=== PATIENT | female | born 1980 | race Caucasian/White ===

== ENCOUNTER 2020-09-09 08:51 | Emergency (ER) | payer OTHER ==
[~2020-09-09 08:51] MED LIST: CLEOCIN300 MG PO; COLACE100 M1 PO; FLAGYL500 MG PO; KEFLEX500 MG PO; LEVAQUIN500 MG PO; METRONIDAZOLE500 MG PO; NORCO 5-325 TA1 EACH PO; ZOFRAN8 MG PO
[2020-09-09] MEDS ORDERED: PREDNISONE 20MG20 MG PO (11:48)
[2020-09-09] MEDS ORDERED: ATARAX25 MG PO (11:48)
[2021-02-08] MEDS ORDERED: ATORVASTATIN CA10 MG PO (10:27)
[2021-02-08] MEDS ORDERED: AMLODIPINE-BEN1 EAC4 PO (10:28)
[2021-02-16] MEDS ORDERED: ADVIL200 M1 PO (08:20)
== END 2020-09-09 11:58 | disposition home or self-care (01) ==
LOC: FER 08:51
DX: L50.0 Allergic urticaria (principal); I10 Essential (primary) hypertension; E10.9 Type 1 diabetes mellitus without complications; Z88.0 Allergy status to penicillin; Z79.899 Other long term (current) drug therapy
CPT/HCPCS: J1200; J2930

== ENCOUNTER 2020-10-27 23:17 | Emergency (ER) | payer OTHER ==
[~2020-10-27 23:17] MED LIST changes: +ATARAX25 MG PO; +PREDNISONE 20MG20 MG PO
[2020-10-28 00:27] LABS: BILIRUBIN NEGATIVE (NEGATIVE); BLOOD 3+ Ery/uL (NEGATIVE); CLARITY CLOUDY (CLEAR); COLOR YELLOW (YELLOW); GLUCOSE (U) NORMAL (NORMAL); LEUKOCYTES 2+ Leu/uL (NEGATIVE); NITRITE POSITIVE (NEGATIVE); PROTEIN 2+ mg/dL (NEGATIVE); SPECIFIC GRAVITY 1.025 (1.001-1.030); UROBILINOGEN 0.2 mg/dL (0.2-1.0); pH 6.5 (5.0-9.0)
[2020-10-28 00:43] LABS: BACTERIA 2+
[2020-10-28 01:36] LABS: BASOPHIL 0.5 % (0-2); EOSINOPHIL 0.8 % (0-5); HCT 41.8 % (37.0-47.0); HGB 13.4 g/dl (12.5-16.0); LYMPHOCYTE 15.3 % (15-48); MCHC 32.1 g/dL (32.0-36.0); MCV 87.3 fL (78.0-100.0); MPV 10.6 fL (6.0-9.5); NRBC 0; PLT 279 K/uL (150-400); RBC 4.79 M/uL (4.20-5.40); RDW 14.6 % (11.5-14.0); WBC 13.4 K/uL (4.0-10.5)
[2020-10-28 01:53] LABS: ALBUMIN 3.5 g/dL (3.4-5.0); BILIRUBIN - TOTAL 0.4 mg/dL (0.2-1.0); BUN/CREAT RATIO (CALC) 16.9 RATIO; CREATININE 0.65 mg/dL (0.51-0.95); GLOBULIN (CALCULATION) 3.8 g/dL; POTASSIUM 3.4 mmol/L (3.5-5.1); TOTAL PROTEIN 7.3 g/dL (6.4-8.2)
[2020-10-28] MEDS ORDERED: ONDANSETRON ODT4 MG SL (02:39)
[2020-10-28] MEDS ORDERED: CIPRO500 MG PO (02:39)
[2020-10-28] MEDS ORDERED: PYRIDIUM200 MG PO (02:39)
[2020-10-28] MEDS ORDERED: NORCO 5-325 TA1 EACH PO (02:39)
[2021-02-08] MEDS ORDERED: ATORVASTATIN CA10 MG PO (10:27)
[2021-02-08] MEDS ORDERED: AMLODIPINE-BEN1 EAC4 PO (10:28)
[2021-02-16] MEDS ORDERED: ADVIL200 M1 PO (08:20)
== END 2020-10-28 02:51 | disposition home or self-care (01) ==
LOC: FER 23:17
PROVIDERS: Emergency Medicine Emergency Medical Services
DX: N30.00 Acute cystitis without hematuria (principal); R16.0 Hepatomegaly, not elsewhere classified; I10 Essential (primary) hypertension; F17.210 Nicotine dependence, cigarettes, uncomplicated; Z88.0 Allergy status to penicillin; Z87.19 Personal history of other diseases of the digestive system
CPT/HCPCS: 36415; 80053; 81001; 83605; 83690; 84145; 85025; J0696; J1885; J2405; J7030

== ENCOUNTER 2021-01-05 07:38 | Emergency (ER) | payer OTHER ==
[~2021-01-05 07:38] MED LIST changes: +CIPRO500 MG PO; +ONDANSETRON ODT4 MG SL; +PYRIDIUM200 MG PO
[2021-01-05 09:11] LABS: ALBUMIN 3.8 g/dL (3.4-5.0); BILIRUBIN - TOTAL 0.6 mg/dL (0.2-1.0); CREATININE 0.63 mg/dL (0.51-0.95); GLOBULIN (CALCULATION) 3.8 g/dL; TOTAL PROTEIN 7.6 g/dL (6.4-8.2)
[2021-01-05 09:17] LABS: BASOPHIL 0.8 % (0-2); HCT 43.9 % (37.0-47.0); HGB 14.3 g/dl (12.5-16.0); LYMPHOCYTE 26.5 % (15-48); MCH 28.6 pg (25.0-31.0); MCHC 32.6 g/dL (32.0-36.0); MCV 87.8 fL (78.0-100.0); MONOCYTE 6.2 % (0-12); NEUTROPHIL 64.2 % (41-80); NRBC 0; PLT 288 K/uL (150-400); RDW 14.6 % (11.5-14.0); WBC 8.9 K/uL (4.0-10.5)
[2021-01-05 09:18] LABS: BILIRUBIN NEGATIVE (NEGATIVE); BLOOD 1+ Ery/uL (NEGATIVE); CLARITY HAZY (CLEAR); COLOR YELLOW (YELLOW); GLUCOSE (U) NORMAL (NORMAL); LEUKOCYTES NEGATIVE Leu/uL (NEGATIVE); NITRITE NEGATIVE (NEGATIVE); PROTEIN NEGATIVE (NEGATIVE); SPECIFIC GRAVITY >=1.030 (1.001-1.030); UROBILINOGEN 0.2 mg/dL (0.2-1.0)
[2021-01-05 09:20] LABS: HCG (URINE) SCREEN NEGATIVE (NEGATIVE)
[2021-01-05 09:29] LABS: BACTERIA 1+
[2021-01-05] MEDS ORDERED: ONDANSETRON ODT4 MG PO (12:34)
[2021-01-05] MEDS ORDERED: CIPRO500 MG PO (12:34)
[2021-01-05] MEDS ORDERED: BENTYL10 MG PO (12:34)
[2021-01-05] MEDS ORDERED: METRONIDAZOLE500 MG PO (12:34)
[2021-02-08] MEDS ORDERED: ATORVASTATIN CA10 MG PO (10:27)
[2021-02-08] MEDS ORDERED: AMLODIPINE-BEN1 EAC4 PO (10:28)
[2021-02-16] MEDS ORDERED: ADVIL200 M1 PO (08:20)
== END 2021-01-05 13:18 | disposition home or self-care (01) ==
LOC: FER 07:38
PROVIDERS: Emergency Medicine
DX: K57.32 Diverticulitis of large intestine without perforation or abscess without bleeding (principal); I10 Essential (primary) hypertension; F17.210 Nicotine dependence, cigarettes, uncomplicated; Z88.0 Allergy status to penicillin
CPT/HCPCS: 36415; 80053; 81001; 84703; 85025; J1170; J1956; J2405; J7030; Q9967

== ENCOUNTER → 2021-02-16 | Day surgery (SDC) | payer OTHER ==
[~2021-02-16] VITALS: Ht 174 cm; Wt 122.5 kg
[~2021-02-16] MED LIST changes: +ADVIL200 M1 PO; +AMLODIPINE-BEN1 EAC4 PO; +ATORVASTATIN CA10 MG PO; +BENTYL10 MG PO; +ONDANSETRON ODT4 MG PO
[2021-02-16 08:32] LABS: HCG (URINE) SCREEN NEGATIVE (NEGATIVE)
[2021-02-16 08:57] LABS: HCT 43.3 % (37.0-47.0); HGB 14.2 g/dl (12.5-16.0); MCH 28.6 pg (25.0-31.0); MCHC 32.8 g/dL (32.0-36.0); MCV 87.3 fL (78.0-100.0); MPV 10.8 fL (6.0-9.5); RBC 4.96 M/uL (4.20-5.40); RDW 14.2 % (11.5-14.0); WBC 8.5 K/uL (4.0-10.5)
[2021-02-16 09:04] LABS: BILIRUBIN - TOTAL 0.7 mg/dL (0.2-1.0); CREATININE 0.6 mg/dL (0.51-0.95); POTASSIUM 3.8 mmol/L (3.5-5.1)
== END | disposition home or self-care (01) ==
LOC: FAS 08:06
PROVIDERS: Anesthesiology; Surgery
DX: K57.31 Diverticulosis of large intestine without perforation or abscess with bleeding (principal); K25.9 Gastric ulcer, unspecified as acute or chronic, without hemorrhage or perforation; F41.9 Anxiety disorder, unspecified; F31.9 Bipolar disorder, unspecified; E74.89 Other specified disorders of carbohydrate metabolism; I10 Essential (primary) hypertension; E78.5 Hyperlipidemia, unspecified; G43.909 Migraine, unspecified, not intractable, without status migrainosus; F17.210 Nicotine dependence, cigarettes, uncomplicated; Z79.899 Other long term (current) drug therapy; Z87.19 Personal history of other diseases of the digestive system
CPT/HCPCS: 36415; 80053; 84703; J2250; J2704; J7120